=== PATIENT | female | born 1965 | race Caucasian/White ===

== ENCOUNTER → 2018-04-15 12:34 | Outpatient (REF) | payer BC, SELFPAY | LOC: LAB 12:34 | PROVIDERS: Visit Provider Obstetrics & Gynecology | DX: N90.89 Other specified noninflammatory disorders of vulva and perineum (principal) | CPT/HCPCS: 87070; 87077; 87186; 87205 ==

== ENCOUNTER 2018-07-12 10:46 | Inpatient (IN) ==
--- NOTE | 2018-07-12 12:26 | History & Physical Report ---
*Admission Date: 07/12/18 *Chief complaint: abd pain *History of present illness: this wf who has 3-4 days of proressive upper abd pain rad to back presented to ed this weekend and had abn ct and lft - she denied admit and has struggled as op with pain and dec po intake and was seen in office and admitted for treatment and eval - [facility] History I have reviewed the patient's past medical history: Yes Medical History: Reports:: Depression, Migraine Denies:: Anxiety, Hyperlipidemia, Hypertension, Seizures Laterality Cases: Left: Arthroscopy Shoulder, Right: Other Amputation: No Fractures: No - *Social History Educational Level: Attended High School Smoking Status: Current every day smoker Tobacco Type: cigarettes # Packs/Day (cigarettes): 1 Alcohol Intake: current Alcohol Intake Frequency:: 0-2 drinks per day Substance Use Type: marijuana Occupational Status: employed Housing: house Household Members: family, children - Psychiatric History Expresses thoughts of harming self/others: None Suicide Plan Description: No Plan Pschychiatric History:: Reports:: Depression Denies:: Anxiety *Family Hx:: Cancer, Heart Attack Review of Systems - Review of Systems Review of systems:: pertinent systems reviewed and negative unless documented below - Constitutional Reports fatigue, Reports malaise - Eyes Denies change in vision - ENT Denies sore throat - *Cardiovascular Denies chest pain - *Respiratory Denies cough - *Gastrointestinal Reports abdominal pain, Reports nausea, Denies black, tarry stools - *Genitourinary Denies blood in urine - *Musculoskeletal Denies joint pain, Denies joint swelling - Integumentary/Breasts Denies rash - *Neurologic Denies seizure-like activity - Psychiatric Denies anxiety Meds Home Medications Medication Instructions Recorded Confirmed Type Ibuprofen [Ibuprofen 800mg 800 mg PO NEEDED PRN 07/10/18 07/12/18 History Tablet] Allergies Allergy/AdvReac Type Severity Reaction Status Date / Time No Known Allergies Allergy Verified 07/12/18 09:07 Exam Vital signs and Labs for Last 24 Hours: Temp Pulse Resp BP Pulse Ox 98.7 F 83 18 107/55 L 90 L 07/12/18 11:22 07/12/18 12:02 07/12/18 12:02 07/12/18 11:22 07/12/18 12:02 I & O for Last 24 hours: Intake & Output 07/10/18 07/11/18 07/12/18 07/13/18 12:59 11:59 11:59 11:59 Weight 117 lb 8 oz - Constitutional no acute distress, thin, cooperative - *Routine HEENT Exam Head: Present: normocephalic Eye: Present: EOMI, PERRL, conjunctival icterus ENT: Present: mucous membranes dry - *Routine Neck Exam Present: supple - *Routine Respiratory Exam Present: CTA bilaterally - *Routine Cardiovascular Exam Present: RRR, murmur - *Routine Abdominal Exam Present: soft, tenderness - *Routine Extremities Exam Absent: calf tenderness - *Routine Skin Exam Present: intact, jaundice - *Routine Neurological Exam Present: alert, oriented X3, CN II-XII intact - Routine Psychiatric Exam Present: anxious Assessment and Plan (1) Hepatitis Current visit: Yes Status: Acute Category: Medical Code(s): K75.9 - Inflammatory liver disease, unspecified
[2018-07-12 14:24] LABS: Basophils % 0.6 % (0.1-2.0); Eosinophils % 0.4 % (0.1-12.0); Hematocrit 36.5 % (37.0-47.0); Hemoglobin 11.6 g/dL (12.2-16.2); Lymphocytes # 1.5 K/mm3 (0.7-4.5); Lymphocytes % 59.2 K/mm3 (10-50); Mean Corpuscular HGB Conc 31.8 g/dL (31.8-35.4); Mean Corpuscular Hemoglobin 30.5 pg (27.0-31.2); Mean Corpuscular Volume 95.7 fl (81-99); Mean Platelet Volume 8.6 fl (7.4-10.4); Monocytes # 0.1 K/mm3 (0.1-1.0); Monocytes % 4.7 % (1.7-9.3); Neutrophils # 0.9 K/mm3 (1.8-7.8); Platelet Count 129 K/mm3 (142-424); Red Blood Count 3.82 M/mm3 (4.20-5.40); Red Cell Distribution Width 14.4 % (11.5-17.5); White Blood Count 2.5 K/mm3 (4.8-10.8)
--- NOTE | 2018-07-12 14:27 | Consult Report ---
<Natali Benz - Last Filed: 07/12/18 14:23> *Admission Date: 07/12/18 *Chief complaint: Jaundice *History of present illness: This is a 52 year old female with what appears to be acute hepatitis of unknown origin. The pt presented to the ED on 07/10 with chest pain and was found to have elevated bilirubin 8.8 and AST/ALT over 1000. Alk phos 1156. The pt refused to be admitted and was d/c home. The pt was seen in Dr. Jane's office today and directly admitted to the hospital with no change in symptoms. She is mildly jaundice and has significant RUQ tenderness. The pt did have u/s imaging today that showed uniform gallbladder wall thickening measuring 5mm but no stones or obstruction or dilation of CBD. The pt denies any new medications, illegal drug use other than marijuana, new tattoos or piercings. She has had some loose stool but no severe n/v. [facility] History Medical History: Reports:: Depression, Migraine Denies:: Anxiety, Hyperlipidemia, Hypertension, Seizures Laterality Cases: Left: Arthroscopy Shoulder, Right: Other Amputation: No Fractures: No - *Social History Educational Level: Attended High School Smoking Status: Current every day smoker Tobacco Type: cigarettes # Packs/Day (cigarettes): 1 Alcohol Intake: current Alcohol Intake Frequency:: 0-2 drinks per day Substance Use Type: marijuana Occupational Status: employed Housing: house Household Members: family, children - Psychiatric History Expresses thoughts of harming self/others: None Suicide Plan Description: No Plan Pschychiatric History:: Reports:: Depression Denies:: Anxiety *Family Hx:: Cancer, Heart Attack Review of Systems - Constitutional Reports malaise - *Gastrointestinal Reports abdominal pain, Reports loose stools - *Musculoskeletal Reports back pain - Integumentary/Breasts Reports change in skin color, Reports yellowing of the skin Meds Home Medications Medication Instructions Recorded Confirmed Type Ibuprofen [Ibuprofen 800mg 800 mg PO NEEDED PRN 07/10/18 07/12/18 History Tablet] Allergies Allergy/AdvReac Type Severity Reaction Status Date / Time No Known Allergies Allergy Verified 07/12/18 09:07 Exam Vital signs and Labs for Last 24 Hours: Temp Pulse Resp BP Pulse Ox 98.7 F 83 18 107/55 L 90 L 07/12/18 11:22 07/12/18 12:02 07/12/18 12:02 07/12/18 11:22 07/12/18 12:02 I & O for Last 24 hours: Intake & Output 07/10/18 07/11/18 07/11/18 07/12/18 00:59 00:59 23:59 23:59 Weight 117 lb 8 oz - *Routine Abdominal Exam Present: tenderness (RUQ) - *Routine Skin Exam Present: jaundice Internal Medicine - CN: Reslt - Impressions 1.) Acute Hepatitis of unknown origin - Acute hepatitis panel ordered - supportive care for now - no intervention such as ERCP required at this time based on current diagnostics <Andrew Perez Jan - Last Filed: 07/12/18 14:50> *History of present illness: This patient does have acute hepatitis which can become fulminant hepatitis with liver failure. I would not allow discharge to home until bilirubin is clearly declining. We do need to determine etiology. Most often this represents acute viral hepatitis (most commonly hepatitis A and hepatitis B). I would check serologies. I would also obtain autoimmune serologies for subpulmonary autoimmune hepatitis. This can also occur with drug-induced hepatitis. This does not appear to be marked increases of transaminases/alkaline phosphatase from CBD stones. Most often choledocholithiasis does not result in perez saminases in the thousands or alkaline phosphatase in the thousands. The patient's ultrasound did not show any ductal dilation. If the serologies are negative, I would consider percutaneous liver biopsy and trial of corticosteroids. Exam Vital signs and Labs for Last 24 Hours: Temp Pulse Resp BP Pulse Ox 98.7 F 83 18 107/55 L 90 L 07/12/18 11:22 07/12/18 12:02 07/12/18 12:02 07/12/18 11:22 07/12/18 12:02 Laboratory Results - last 24 hr 07/12/18 14:15: WBC 2.5 L D, RBC 3.82 L, Hgb 11.6 L, Hct 36.5 L, MCV 95.7, MCH 30.5, MCHC 31.8, RDW 14.4, Plt Count 129 L, MPV 8.6, Neut % (Auto) 35.0 L, Lymph % (Auto) 59.2 H, [place] % (Auto) 4.7, Eos % (Auto) 0.4, Baso % (Auto) 0.6, Neut # (Auto) 0.9 L*, Lymph # (Auto) 1.5, [place] # (Auto) 0.1, Eos # (Auto) 0.0, Baso # (Auto) 0.0, Total Counted 100, Neutrophils % (Manual) 33 L, Lymphocytes % (Manual) 44, Atypical Lymphs % 21.0, Monocytes % (Manual) 2, Platelet Estimate Slight decrease, Stomatocytes 1+ I & O for Last 24 hours: Intake & Output 07/10/18 07/11/18 07/11/18 07/12/18 00:59 00:59 23:59 23:59 Weight 53.297 kg Internal Medicine - CN: Reslt - Labs CBC & Chem 7: 07/12/18 14:15 Labs: Short CBC 07/12/18 Range/Units 14:15 WBC 2.5 L D (4.8-10.8) K/mm3 Hgb 11.6 L (12.2-16.2) g/dL Hct 36.5 L (37.0-47.0) % Plt Count 129 L (142-424) K/mm3
[2018-07-12 14:46] LABS: Lymphocytes % 44 % (10-50); Monocytes % 2 % (2-9); Neutrophils % 33 % (42-76); Total Cells Counted 100
[2018-07-12 14:47] LABS: Albumin Level 2.1 gm/dL (3.4-5.0); Albumin/Globulin Ratio 0.6 (1.1-1.8); Anion Gap 9.5 mEq/L (5-15); Bilirubin,Total 9.3 mg/dL (0.2-1.0); Calcium 7.7 mg/dL (8.5-10.1); Globulin 3.7 gm/dl (1.3-3.2); Stomatocytes 1+; Total Protein,Serum 5.8 gm/dL (6.4-8.2)
[2018-07-12 15:11] LABS: Potassium 3.5 mmoL/L (3.5-5.1)
[2018-07-12 15:53] LABS: INR 1.04 (0.9-1.1); Prothrombin Time 10.7 seconds (9.4-11.8)
[2018-07-12 19:22] LABS: C-Reactive Protein 0.8 mg/L (0.0-0.9)
[2018-07-13 07:02] LABS: Basophils % 0.7 % (0.1-2.0); Eosinophils % 0.3 % (0.1-12.0); Hematocrit 35.2 % (37.0-47.0); Hemoglobin 11.4 g/dL (12.2-16.2); Lymphocytes # 1.9 K/mm3 (0.7-4.5); Lymphocytes % 59.5 K/mm3 (10-50); Mean Corpuscular HGB Conc 32.5 g/dL (31.8-35.4); Mean Corpuscular Hemoglobin 31.1 pg (27.0-31.2); Mean Corpuscular Volume 95.9 fl (81-99); Mean Platelet Volume 8.1 fl (7.4-10.4); Monocytes # 0.2 K/mm3 (0.1-1.0); Monocytes % 4.7 % (1.7-9.3); Neutrophils # 1.1 K/mm3 (1.8-7.8); Neutrophils % 34.8 % (37.0-80.0); Platelet Count 145 K/mm3 (142-424); Red Blood Count 3.67 M/mm3 (4.20-5.40); Red Cell Distribution Width 14.9 % (11.5-17.5); White Blood Count 3.1 K/mm3 (4.8-10.8)
[2018-07-13 07:31] LABS: Albumin Level 1.8 gm/dL (3.4-5.0); Albumin/Globulin Ratio 0.5 (1.1-1.8); Anion Gap 7.6 mEq/L (5-15); Bilirubin,Total 8.9 mg/dL (0.2-1.0); Calcium 7.6 mg/dL (8.5-10.1); Globulin 3.6 gm/dl (1.3-3.2); Potassium 3.6 mmoL/L (3.5-5.1); Total Protein,Serum 5.4 gm/dL (6.4-8.2)
--- NOTE | 2018-07-13 07:38 | Pharmacy Consult Notes ---
[facility] Pharm[facility] VTE Monitoring - Patient Demographics Admission date: 07/12/18 Report Date: 07/13/18 Time: 07:37 Allergies/Adverse Reactions: Patient Allergies No Known Allergies Allergy (Verified 07/12/18 09:07) Height: 1.68 m Weight: 53.297 kg Patient Problems: Current Active Problems Hepatitis (Acute) - VTE Risk Labs: VTE Related Lab Results Hgb 11.4 g/dL (12.2-16.2) L 07/13/18 06:15 Hct 35.2 % (37.0-47.0) L 07/13/18 06:15 Plt Count 145 K/mm3 (142-424) 07/13/18 06:15 PT 10.7 seconds (9.4-11.8) 07/12/18 15:25 INR 1.04 (0.9-1.1) 07/12/18 15:25 BUN 5 mg/dL (7-18) L 07/12/18 14:15 Creatinine 0.47 mg/dL (0.55-1.02) L D 07/12/18 14:15 Estimated Creat Clear 119 mL/min (0-300) 07/12/18 14:15 Was VTE Risk Assessment Performed: Yes VTE Score: 1 VTE Risk Level: Very Low Risk - Prophylaxis VTE Prophylaxis Ordered?: Yes Types of VTE Prophylaxis: TEDS Knee High Location of Applied Device: Bilateral Lower Extremeties - VTE Diagnosis Confirmed Treatment or plan recommended: Continue Current Treatment
--- NOTE | 2018-07-13 08:52 | Progress Note ---
Internal Medicine - PN: Subj *Date: 07/13/18 *Time: 08:49 Exam Vital signs and Labs for Last 24 Hours: Temp Pulse Resp BP Pulse Ox 99.0 F 89 18 105/58 L 94 L 07/13/18 04:00 07/13/18 04:00 07/13/18 04:00 07/13/18 04:00 07/13/18 08:00 Laboratory Results - last 24 hr 07/12/18 14:15: WBC 2.5 L D, RBC 3.82 L, Hgb 11.6 L, Hct 36.5 L, MCV 95.7, MCH 30.5, MCHC 31.8, RDW 14.4, Plt Count 129 L, MPV 8.6, Neut % (Auto) 35.0 L, Lymph % (Auto) 59.2 H, [place] % (Auto) 4.7, Eos % (Auto) 0.4, Baso % (Auto) 0.6, Neut # (Auto) 0.9 L*, Lymph # (Auto) 1.5, [place] # (Auto) 0.1, Eos # (Auto) 0.0, Baso # (Auto) 0.0, Total Counted 100, Neutrophils % (Manual) 33 L, Lymphocytes % (Manual) 44, Atypical Lymphs % 21.0, Monocytes % (Manual) 2, Platelet Estimate Slight decrease, Stomatocytes 1+ 07/12/18 14:15: Sodium 136, Potassium 3.5, Chloride 100, Carbon Dioxide 30, Anion Gap 9.5, BUN 5 L, Creatinine 0.47 L D, Estimated Creat Clear 119, Estimated GFR 140, Est GFR ( Amer) 169 D, Glucose 122 H, Calcium 7.7 L, Total Bilirubin 9.3 H, AST 970 H* D, ALT 961 H*, Alkaline Phosphatase 1170 H, Total Protein 5.8 L, Albumin 2.1 L, Globulin 3.7 H, Albumin/Globulin Ratio 0.6 L 07/12/18 15:25: PT 10.7, INR 1.04 07/12/18 15:25: Ferritin 2443 H, C-Reactive Protein 0.8 07/12/18 15:25: Ammonia 51 07/13/18 06:15: WBC 3.1 L, RBC 3.67 L, Hgb 11.4 L, Hct 35.2 L, MCV 95.9, MCH 31.1, MCHC 32.5, RDW 14.9, Plt Count 145, MPV 8.1, Neut % (Auto) 34.8 L, Lymph % (Auto) 59.5 H, [place] % (Auto) 4.7, Eos % (Auto) 0.3, Baso % (Auto) 0.7, Neut # (Auto) 1.1 L, Lymph # (Auto) 1.9, [place] # (Auto) 0.2, Eos # (Auto) 0.0, Baso # (Auto) 0.0 07/13/18 06:15: Sodium 133 L, Potassium 3.6, Chloride 102, Carbon Dioxide 27, Anion Gap 7.6, BUN 4 L, Creatinine 0.51 L, Estimated Creat Clear 110, Estimated GFR 127, Est GFR ( Amer) 154, Glucose 90 D, Calcium 7.6 L, Total Bilirubin 8.9 H, AST 747 H*, ALT 779 H*, Alkaline Phosphatase 1182 H, Total Protein 5.4 L, Albumin 1.8 L D, Globulin 3.6 H, Albumin/Globulin Ratio 0.5 L I & O for Last 24 hours: Intake & Output 07/10/18 07/11/18 07/12/18 07/13/18 12:59 11:59 11:59 11:59 Intake Total 2417 / 2417 Balance 2417 / 2417 Weight 117 lb 8 oz 117 lb 8 oz - *Routine HEENT Exam Head: Present: normocephalic Eye: Present: PERRL ENT: Present: mucous membranes moist Comments: jaundice - *Routine Neck Exam Present: supple. Absent: lymphadenopathy - *Routine Respiratory Exam Present: CTA bilaterally - *Routine Cardiovascular Exam Present: RRR - *Routine Abdominal Exam Present: soft, normoactive bowel sounds, tenderness - *Routine Extremities Exam Present: full ROM. Absent: cyanosis, clubbing, edema - *Routine Skin Exam Present: jaundice - *Routine Neurological Exam Present: alert, oriented X3 Assessment and Plan (1) Hepatitis Current visit: Yes Status: Acute Category: Medical Code(s): K75.9 - Inflammatory liver disease, unspecified - Assessment and plan all Dx Assessment and Plan for all problems:: Rounded with Dr. Jane all orders per Lucinda positive for hep A monitor labs
[2018-07-13 14:51] LABS: Lymphocytes % 52 % (10-50); Monocytes % 3 % (2-9); Neutrophils % 36 % (42-76); Total Cells Counted 100
[2018-07-14 06:43] LABS: Albumin Level 1.7 gm/dL (3.4-5.0); Albumin/Globulin Ratio 0.5 (1.1-1.8); Anion Gap 10.6 mEq/L (5-15); Bilirubin,Total 8.1 mg/dL (0.2-1.0); Calcium 7.6 mg/dL (8.5-10.1); Globulin 3.6 gm/dl (1.3-3.2); Potassium 3.6 mmoL/L (3.5-5.1); Total Protein,Serum 5.3 gm/dL (6.4-8.2)
--- NOTE | 2018-07-14 10:24 | Progress Note ---
Internal Medicine - PN: Subj *Date: 07/14/18 *Time: 10:21 Interval history: pt doing better and lft dec Exam Vital signs and Labs for Last 24 Hours: Temp Pulse Resp BP Pulse Ox 98.0 F 70 18 101/64 L 93 L 07/14/18 08:00 07/14/18 08:00 07/14/18 08:00 07/14/18 08:00 07/14/18 08:00 Laboratory Results - last 24 hr 07/13/18 06:15: Total Counted 100, Neutrophils % (Manual) 36 L, Lymphocytes % (Manual) 52 H, Atypical Lymphs % 8.0, Monocytes % (Manual) 3, Metamyelocytes % 1.0, Platelet Estimate Normal 07/14/18 06:02: Sodium 137, Potassium 3.6, Chloride 103, Carbon Dioxide 27, Anion Gap 10.6, BUN 3 L, Creatinine 0.51 L, Estimated Creat Clear 110, Estimated GFR 127, Est GFR ( Amer) 154, Glucose 95, Calcium 7.6 L, Total Bilirubin 8.1 H, AST 439 H* D, ALT 550 H*, Alkaline Phosphatase 1130 H, Total Protein 5.3 L, Albumin 1.7 L, Globulin 3.6 H, Albumin/Globulin Ratio 0.5 L I & O for Last 24 hours: Intake & Output 07/11/18 07/12/18 07/13/18 07/14/18 11:59 11:59 11:59 11:59 Intake Total 2897 / 2897 3578 / 3578 Balance 2897 / 2897 3578 / 3578 Weight 117 lb 8 oz 117 lb 8 oz - Constitutional no acute distress, thin - *Routine HEENT Exam Head: Present: normocephalic Eye: Present: EOMI, PERRL, conjunctival icterus ENT: Present: mucous membranes dry - *Routine Neck Exam Present: supple - *Routine Respiratory Exam Present: CTA bilaterally - *Routine Cardiovascular Exam Present: RRR - *Routine Abdominal Exam Present: soft - *Routine Extremities Exam Absent: calf tenderness - *Routine Skin Exam Present: intact - *Routine Neurological Exam Present: alert, CN II-XII intact - Routine Psychiatric Exam Present: normal affect Assessment and Plan (1) Hepatitis Current visit: Yes Status: Acute Category: Medical Code(s): K75.9 - Inflammatory liver disease, unspecified
[2018-07-14 11:26] LABS: Hepatitis B Core Antibody IgM Negative (Negative); Hepatitis B Surface Antigen Negative (Negative)
[2018-07-14 12:40] LABS: Hepatitis C Antibody <0.1 s/co ratio (0.0-0.9)
[2018-07-14 15:31] LABS: Anti-Smith Antibody <0.2 AI (0.0-0.9)
[2018-07-15 09:01] LABS: Albumin Level 1.6 gm/dL (3.4-5.0); Albumin/Globulin Ratio 0.4 (1.1-1.8); Anion Gap 9.5 mEq/L (5-15); Bilirubin,Total 6.9 mg/dL (0.2-1.0); Calcium 7.6 mg/dL (8.5-10.1); Globulin 3.9 gm/dl (1.3-3.2); Potassium 3.5 mmoL/L (3.5-5.1); Total Protein,Serum 5.5 gm/dL (6.4-8.2)
--- NOTE | 2018-07-15 12:33 | Discharge Summary ---
General - General Admission date:: 07/12/18 Discharge date: 07/15/18 HPI HPI: this wf who has 3-4 days of proressive upper abd pain rad to back presented to ed this weekend and had abn ct and lft - she denied admit and has struggled as op with pain and dec po intake and was seen in office and admitted for treatment and eval - Hospital Course Hospital Course: GI, consult see note hepatitis panel positive for hepatitis A AST-274 down from 439 ALT-550 down from 409 Patient states today she is feeling better abdomen is less tender, labs continue to trend down. We will discharge home follow-up with Dr. Perez next. No work until follow-up. Follow-up in office on Thursday. Patient was informed with contact precautions. no tylenol or drinking etol Objective Vital signs: Temp Pulse Resp BP Pulse Ox 98.3 F 77 18 116/71 95 07/15/18 08:00 07/15/18 08:00 07/15/18 08:00 07/15/18 08:00 07/15/18 08:00 no acute distress - *Routine HEENT Exam Head: Present: normocephalic Eye: Present: PERRL ENT: Present: mucous membranes moist - *Routine Neck Exam Present: full ROM - *Routine Respiratory Exam Present: CTA bilaterally - *Routine Cardiovascular Exam Present: RRR - *Routine Abdominal Exam Present: soft, normoactive bowel sounds, tenderness - *Routine Extremities Exam Present: full ROM - *Routine Skin Exam Present: intact, jaundice - *Routine Neurological Exam Present: alert, oriented X3 - Routine Psychiatric Exam Present: normal affect Results Labs on day of discharge: Labs from last 24 hours 07/15/18 07/12/18 07/12/18 08:32 15:25 14:15 Sodium 133 L Potassium 3.5 Chloride 100 Carbon Dioxide 27 Anion Gap 9.5 BUN 2 L D Creatinine 0.62 D Estimated Creat Clear 90 Estimated GFR 101 Est GFR ( Amer) 123 D Glucose 157 H Calcium 7.6 L Total Bilirubin 6.9 H AST 274 H D ALT 409 H* Alkaline Phosphatase 1094 H Total Protein 5.5 L Albumin 1.6 L Globulin 3.9 H Albumin/Globulin Ratio 0.4 L IgG 1240 IgA 260 IgM 515 H Hepatitis A IgM Ab Positive A Hep Bs Antigen Negative Hep B Core IgM Ab Negative Hepatitis C Antibody <0.1 - Additional Comments Rounded with Dr. Jane all orders per Lucinda DS: Diagnosis - Discharge Diagnosis (1) Hepatitis Status: Acute Discharge Plan - Patient Discharge Instructions ACTIVITY: Continue current activity DIET: continue same diet Patient Instructions: Hepatitis A Virus, Hepatitis B Virus, Hepatitis C Virus - Follow up Plan Follow up with: Anderw Perez MD [Staff Physician] - 2 weeks Silvestre Jane MD [Primary Care Provider] - 1 week Home Medications: Home Medications Medication Instructions Recorded Confirmed Type Ibuprofen [Ibuprofen 800mg 800 mg PO Q8HP PRN 07/10/18 07/13/18 History Tablet] Prescriptions/Medication Reconciliation: Continue Ibuprofen [Ibuprofen 800mg Tablet] 800 mg PO Q8HP PRN PRN Reason: Moderate Pain
[2018-07-16 09:24] LABS: Angiotensin Converting Enzyme 234 U/L (14-82)
== END 2018-07-15 13:31 | disposition home or self-care (01) ==
LOC: OBSVTOIN 10:47
PROVIDERS: ADMIT Emergency Medicine; ATTEND Emergency Medicine

== ENCOUNTER → 2018-07-20 17:41 | Outpatient (CLI) | payer BC, SELFPAY ==
[2018-07-20 18:01] LABS: Basophils % 1.1 % (0.1-2.0); Eosinophils % 0.9 % (0.1-12.0); Hematocrit 37.4 % (37.0-47.0); Hemoglobin 11.5 g/dL (12.2-16.2); Lymphocytes # 1.1 K/mm3 (0.7-4.5); Lymphocytes % 37.4 % (10-50); Mean Corpuscular HGB Conc 30.7 g/dL (31.8-35.4); Mean Corpuscular Hemoglobin 30.4 pg (27.0-31.2); Mean Corpuscular Volume 98.9 fl (81-99); Mean Platelet Volume 9.9 fl (7.4-10.4); Monocytes # 0.4 K/mm3 (0.1-1.0); Monocytes % 12.2 % (1.7-9.3); Neutrophils # 1.5 K/mm3 (1.8-7.8); Neutrophils % 48.4 % (37.0-80.0); Platelet Count 258 K/mm3 (142-424); Red Blood Count 3.79 M/mm3 (4.20-5.40); Red Cell Distribution Width 15.7 % (11.5-17.5)
[2018-07-20 18:20] LABS: Albumin Level 2.2 gm/dL (3.4-5.0); Albumin/Globulin Ratio 0.5 (1.1-1.8); Anion Gap 11.2 mEq/L (5-15); Aspartate Amino Transferase 225 U/L (15-37); Blood Urea Nitrogen 7 mg/dL (7-18); Carbon Dioxide 28 mmol/L (21.0-32.0); Chloride 99 mmol/L (98-107); Creatinine,Serum 0.55 mg/dL (0.55-1.02); Estimated Glomerular Filt Rate 117 ml/min (>60); GFR (African American) 141 ML/MIN (>60); Globulin 4.5 gm/dl (1.3-3.2); Potassium 4.2 mmoL/L (3.5-5.1); Sodium 134 mmol/L (136-145); Total Protein,Serum 6.7 gm/dL (6.4-8.2)
[2018-07-20 18:28] LABS: Amylase 24 U/L (25-115); Lipase 156 u/L (73-393)
[2018-07-20 19:51] LABS: Alkaline Phosphatase 1157 U/L (46-116)
[2018-07-20 19:52] LABS: Alanine Aminotransferase 222 U/L (12-78)
[2018-07-20 19:53] LABS: Bilirubin,Total 3.9 mg/dL (0.2-1.0); Calcium 8.8 mg/dL (8.5-10.1)
[2018-07-20 19:54] LABS: Glucose 87 mg/dL (74-106)
== END ==
PROVIDERS: Visit Provider Emergency Medicine
DX: K81.9 Cholecystitis, unspecified (principal); R74.8 Abnormal levels of other serum enzymes
CPT/HCPCS: 80053; 82150; 83690; 85025

== ENCOUNTER → 2018-07-26 14:23 | Outpatient (CLI) | payer BC, SELFPAY ==
[2018-07-26 15:02] LABS: Eosinophils # 0.1 K/mm3 (0.0-0.4); Eosinophils % 1.4 % (0.1-12.0); Hematocrit 36.7 % (37.0-47.0); Hemoglobin 11.5 g/dL (12.2-16.2); Lymphocytes # 1.4 K/mm3 (0.7-4.5); Lymphocytes % 41.8 % (10-50); Mean Corpuscular HGB Conc 31.3 g/dL (31.8-35.4); Mean Corpuscular Hemoglobin 30.1 pg (27.0-31.2); Mean Corpuscular Volume 95.9 fl (81-99); Mean Platelet Volume 7.5 fl (7.4-10.4); Monocytes # 0.2 K/mm3 (0.1-1.0); Monocytes % 6.6 % (1.7-9.3); Neutrophils # 1.7 K/mm3 (1.8-7.8); Neutrophils % 49.2 % (37.0-80.0); Platelet Count 266 K/mm3 (142-424); Red Blood Count 3.83 M/mm3 (4.20-5.40); Red Cell Distribution Width 15.6 % (11.5-17.5); White Blood Count 3.4 K/mm3 (4.8-10.8)
[2018-07-26 15:44] LABS: Albumin Level 2.5 gm/dL (3.4-5.0); Albumin/Globulin Ratio 0.6 (1.1-1.8); Alkaline Phosphatase 763 U/L (46-116); Anion Gap 9.9 mEq/L (5-15); Blood Urea Nitrogen 10 mg/dL (7-18); Carbon Dioxide 29 mmol/L (21.0-32.0); Chloride 103 mmol/L (98-107); Creatinine,Serum 0.61 mg/dL (0.55-1.02); Estimated Glomerular Filt Rate 103 ml/min (>60); GFR (African American) 125 ML/MIN (>60); Globulin 4.5 gm/dl (1.3-3.2); Potassium 3.9 mmoL/L (3.5-5.1); Sodium 138 mmol/L (136-145)
[2018-07-26 16:55] LABS: Alanine Aminotransferase 159 U/L (12-78); Aspartate Amino Transferase 215 U/L (15-37)
[2018-07-26 16:57] LABS: Bilirubin,Total 2.6 mg/dL (0.2-1.0); Calcium 9.3 mg/dL (8.5-10.1); Glucose 105 mg/dL (74-106)
== END ==
PROVIDERS: Visit Provider Nurse Practitioner Acute Care
DX: B15.9 Hepatitis A without hepatic coma (principal)
CPT/HCPCS: 36415; 80053; 85025

== ENCOUNTER 2019-01-06 13:41 | Emergency (ER) | payer BC, SELFPAY ==
[2019-01-06] VITALS (7 sets, daily range): BP systolic 129–140; BP diastolic 62–85; PULSE 68–84; RESP 16–18; TEMP 36.6–36.8; O2SAT 96–99; BMI 20.9
--- NOTE | 2019-01-06 14:41 | [facility].EDGENADL ---
ED Disposition Clinical Impression: Neuropathic pain Disposition: Home, Self-Care Condition on Discharge: Good Referrals: Silvestre Jane MD [Primary Care Provider] - Time of Disposition: 17:18 - Critical Care Critical Care Time: No Attestation: On 01/06/19, the high probability of a clinically significant, sudden or life threatening deterioration of the following system(s) required my full and direct attention, intervention and personal management. The time I documented below is in addition to time spent performing reported procedures but includes the following listed in this critical care notation. Medical Decision Making - Medical Records Medical records reviewed: Yes: I reviewed the patient's medical records. - Greg Inquiry Pt receiving controlled substance: No Greg was queried for this patient: No Vital Signs: 01/06/19 14:42 Temperature 98.3 F Temperature Source Oral Pulse Rate [Left Radial] 72 Respiratory Rate 16 Blood Pressure [Right Arm] 137/72 Blood Pressure Mean [Right Arm] 93 Blood Pressure Source [Right Arm] Automatic Cuff Blood Pressure Position [Right Arm] Sitting 02 Sat by Pulse Oximetry 98 Oxygen Delivery Method Room Air - Lab Data Lab results reviewed: Yes: I reviewed the patient's lab results. Orders (Tests/Meds): ED MEDICATIONS Discontinued Medications Generic Name Dose Route Start Last Admin Trade Name Freq PRN Reason Stop Dose Admin Ketorolac Tromethamine 60 mg 01/06/19 14:54 01/06/19 15:01 Toradol 60mg/2ml Vial IM 01/06/19 14:55 60 mg ONCE ONE Administration Prednisone 60 mg 01/06/19 14:55 01/06/19 15:02 Deltasone 20mg Tablet PO 01/06/19 14:56 60 mg ONCE ONE Administration General Adult HPI - General Stated complaint: left ear pain Time Seen by Provider: 01/06/19 14:41 Mode of Arrival: Ambulatory Source of Information: Patient Limitations: No Limitations - Related Data Home Medications Medication Instructions Recorded Confirmed No Known Home Medications 01/06/19 01/06/19 Allergies Allergy/AdvReac Type Severity Reaction Status Date / Time No Known Allergies Allergy Verified 12/03/18 04:28 [facility] History - Hepatitis A Screen Attestation statement:: This patient has been screened for Hepatitis A risk factors. I have reviewed the patient's past medical history: Yes Medical History: Reports:: Depression, Hepatitis, Migraine Denies:: Anxiety, Hyperlipidemia, Hypertension, Seizures Laterality Cases: Left: Arthroscopy Shoulder, Right: Other Amputation: No Fractures: No Comment: right thumb, left shoulder - Social History Smoking Status: Current every day smoker Tobacco Type: cigarettes # Packs/Day (cigarettes): 2 Alcohol Intake: never Alcohol Intake Frequency:: 0-2 drinks per day Substance Use Type: marijuana Occupational Status: employed Housing: house Household Members: significant other, family, children - Psychiatric History Pschychiatric History:: Reports:: Depression Denies:: Anxiety Family Hx:: Cancer, Heart Attack ROS Obtained: Yes All systems reviewed & no additional complaints - Constitutional Constitutional: Denies chills, Denies fatigue, Denies fever(s) - Eyes Eyes: Denies change in vision - ENT Ears, Nose, Mouth, and Throat: Denies sinus pain, Denies sinus pressure, Denies ringing in the ears - Cardiovascular Cardiovascular: Denies chest pain, Denies chest pain at rest, Denies dyspnea - Respiratory Respiratory: No chest congestion, No cough, No dyspnea on exertion - Musculoskeletal Musculoskeletal: Denies back pain, Denies joint stiffness, Denies joint swelling, Reports neck pain - Integumentary/Breasts Skin/Breast: Denies rash, Denies skin pain - Neurologic Neurologic: Reports headache(s), Reports other (burning sensation post to mastoid process... no overlying skin changes) Physical Exam - General General appearance: alert, in distress - Head Head exam: atr
--- NOTE | 2019-01-06 17:15 | PC.NURSE ---
pt states improvement in pain
== END 2019-01-06 17:46 | disposition home or self-care (01) ==
PROVIDERS: Emergency Provider Emergency Medicine; PCP Emergency Medicine
DX: M79.2 Neuralgia and neuritis, unspecified (principal); F33.1 Major depressive disorder, recurrent, moderate; F17.210 Nicotine dependence, cigarettes, uncomplicated
CPT/HCPCS: 96372; 99283

== ENCOUNTER → 2019-10-20 09:33 | Outpatient (CLI) | payer BC, SELFPAY ==
--- NOTE | 2019-10-20 09:33 | MM_ITS ---
PROCEDURE: MM DIG SCREENING MAMM BI W/CAD CLINICAL INDICATION: screening There is no personal or family history of breast cancer COMPARISON: DMDXUR DIG MAMM-DX UNILATERAL-RT from 11/17/2012 SBWCR STEROTATIC BX W/CLIP-RT from 11/17/2012 DMSB DIG MAMM-SCREEN LILA from 12/20/2014 TECHNIQUE: Standard CC and MLO images and 3D Tomosynthesis was obtained. R2 CAD reviewed. FINDINGS: There is a markedly and diffusely dense parenchymal pattern definitely lessening the sensitivity of mammography. Treasure images are most helpful in this type of breast parenchyma. There are scattered areas of somewhat amorphous appearing microcalcifications in the outer quadrants of each breast best appreciated on the CC projections and treasure images. The somewhat diffuse nature of these microcalcifications are more in favor of sclerosing adenosis. There were not definitely seen on the previous study in 2014. Though they most likely represent sclerosing adenosis which he just patient return with for better evaluation especially since there has not been more recent mammograms for comparison. There is minimal arterial calcification in each breast. IMPRESSION: Markedly dense and heterogenic parenchymal pattern with scattered areas of microcalcifications likely secondary to sclerosing adenosis however see discussion above. BI-RAD Category: 3 Probably Benign Finding Short Term Follow-up FOLLOW-UP: 6M 6Month Follow-up (A letter has been sent to the patient regarding results of the study.) Dictated by: Dr. Narinder Grimes MD 10/22/2019 10:[address] Narinder Grimes MD in [place] 10/22/2019 10:10
== END ==
PROVIDERS: PCP Emergency Medicine; Visit Provider Nurse Practitioner Family
DX: Z12.31 Encounter for screening mammogram for malignant neoplasm of breast (principal)
CPT/HCPCS: 77063; 77067

== ENCOUNTER 2020-04-11 19:17 | Emergency (ER) | payer BC, SELFPAY ==
[2020-04-11 19:24] VITALS: BP 108/70; PULSE 70; RESP 19; TEMP 36.6; O2SAT 98; BMI 22.6
--- NOTE | 2020-04-11 19:56 | HMH.EDUTC ---
[facility] [place] Clinical Impression: Sinusitis Qualifiers: Sinusitis location: unspecified location Chronicity: acute Recurrence: non-recurrent Qualified Code(s): J01.90 - Acute sinusitis, unspecified Acute bronchitis Qualifiers: Bronchitis organism: unspecified organism Qualified Code(s): J20.9 - Acute bronchitis, unspecified Disposition: Home, Self-Care Condition on Discharge: Good Instructions: Sinusitis, DI for Sinusitis, DI for Acute Bronchitis Additional Instructions: Drink plenty of fluids. Take tylenol or ibuprofen for pain or fever. Take the medications as directed. Follow up with your regular doctor. GO TO THE ER FOR ANY WORSENING SYMPTOMS Prescriptions: Benzonatate [Tessalon Perle 100mg Cap] 100 mg PO TIDP PRN #30 cap PRN Reason: Cough Transmission Status: Received by [facility] Azithromycin [Z-Amol 250mg Tab*] 250 mg PO UD DOSE PK #6 tab Transmission Status: Received by [facility] Referrals: Silvestre Jane MD [Primary Care Provider] - Forms: Work/School Release Time of Disposition: 19:58 Medical Decision Making - Medical Records Medical records reviewed: No: I reviewed the patient's medical records. - Greg Inquiry Pt receiving controlled substance: No Vital Signs: 04/11/20 19:24 04/11/20 20:12 Temperature 97.8 F 97.8 F Temperature Source Oral Oral Pulse Rate 70 Pulse Rate [Radial] 70 Respiratory Rate 19 19 Blood Pressure 108/70 L Blood Pressure [Right Arm] 108/70 L Blood Pressure Mean [Right Arm] 82 Blood Pressure Source Automatic Cuff Blood Pressure Source [Right Arm] Automatic Cuff Blood Pressure Position Sitting Blood Pressure Position [Right Arm] Sitting 02 Sat by Pulse Oximetry 98 Oxygen Delivery Method Room Air Room Air [facility] [place] - General Stated complaint: Needs release for work Time Seen by Provider: 04/11/20 19:30 Mode of Arrival: Ambulatory Source of Information: Patient Limitations: No Limitations Description of Symptoms (Recalled from Triage Doc. by RN): Reports that she needs a release in order to go back to work. HEENT Symptoms (Recalled from RN notes): No Resp Symptoms (Recalled from RN notes): No Skin Symptoms (Recalled from RN notes): No MS Symptoms (Recalled from RN notes): No Functional Status (Recalled from RN notes): wnl - History of Present Illness Provider Complaint: She states that she has had chest congesion and sinus congestion for the past 3 days. She was tested at her work for COVID-19. She states that it was negative, but she was told to get treated for her symptoms before she comes back to work. - Related Data Previous Rx's Medication Instructions Recorded amoxicillin 500 mg tablet 500 mg PO BID 10 Days #20 tab 10/04/19 fluticasone propionate 50 1 spray INTRANASAL DAILY #9.9 ml 11/02/19 mcg/actuation nasal spray,suspension Azithromycin [Z-Amol 250mg Tab*] 250 mg PO UD DOSE PK #6 tab 04/11/20 Benzonatate [Tessalon Perle 100mg 100 mg PO TIDP PRN #30 cap 04/11/20 Cap] Allergies Allergy/AdvReac Type Severity Reaction Status Date / Time No Known Allergies Allergy Verified 11/02/19 10:55 - Worker's Comp Is this a Worker's Comp case?: No [facility] History - Hepatitis A Screen Drug use history?: No High risk sexual behaviors?: No History of sexually transmitted infection?: No Currently employed?: No Childcare worker?: No Do you have indoor plumbing?: Yes Do you have electricity?: Yes Attestation statement:: This patient has been screened for Hepatitis A risk factors. I have reviewed the patient's past medical history: Yes Medical History: Reports:: Depression, Hepatitis, Migraine Denies:: Anxiety, Hyperlipidemia, Hypertension, Seizures Other Medical History: Reports: Sinus Problems Laterality Cases: Left: Arthroscopy Shoulder, Right: Other Amputation: No Fractures: No Comment: right thumb, left shoulder - Social History Smoking Status: Current every day smoker Tobacco Ty
[2020-04-11 20:12] VITALS: BP 108/70; PULSE 70; RESP 19; TEMP 36.6; O2SAT 98
== END 2020-04-11 20:13 | disposition home or self-care (01) ==
PROVIDERS: Emergency Provider Nurse Practitioner Family; PCP Emergency Medicine
DX: J01.90 Acute sinusitis, unspecified (principal); J20.9 Acute bronchitis, unspecified; G43.709 Chronic migraine without aura, not intractable, without status migrainosus; F33.1 Major depressive disorder, recurrent, moderate; F17.210 Nicotine dependence, cigarettes, uncomplicated
CPT/HCPCS: 99201; U0003

== ENCOUNTER 2021-04-20 16:42 | Emergency (ER) | payer BC, SELFPAY ==
[2021-04-20 16:43] VITALS: BP 126/77; PULSE 72; RESP 22; TEMP 36.9; O2SAT 99; BMI 24.2
--- NOTE | 2021-04-20 17:18 | XR_ITS ---
PROCEDURE INFORMATION: Exam: XR Right Knee Exam date and time: 04/20/2021 5:18 PM Age: 55 years old Clinical indication: Pain; Knee; Right TECHNIQUE: Imaging protocol: XR Right knee. Views: 3 views. COMPARISON: CR Knee R 03/08/2019 4:49 PM FINDINGS: Bones/joints: Moderate tricompartmental degenerative changes are seen in the knee. Calcium projects over the lateral and medial compartments compatible with chondrocalcinosis. No fracture. No malalignment. Soft tissues: Soft tissues notable for a moderate suprapatellar effusion. IMPRESSION: Moderate degenerative arthritis
--- NOTE | 2021-04-20 17:18 | ECG_ITS ---
APPROVED REPORT Exam: Resting ECG HR:82 bpm ECG Measurements Heart Rate 82 AXES CA 120 P 69 QRSd 82 QRS 86 QT 376 T 61 QTc 439 Conclusion Sinus rhythm with premature atrial complexes Biatrial abnormality Late r wave progression Abnormal ECG Electronically signed by : Jaime Ernst MD 04/21/2021 08:59:47
[2021-04-20 17:22] VITALS: BP 143/88; PULSE 89; RESP 12; O2SAT 96
[2021-04-20 17:27] LABS: Basophils # 0.1 K/mm3 (0-0.2); Basophils % 0.5 % (0.1-2.0); Eosinophils # 0.1 K/mm3 (0.0-0.4); Eosinophils % 1.2 % (0.1-12.0); Hematocrit 39.6 % (37.0-47.0); Hemoglobin 13.7 g/dL (12.2-16.2); Lymphocytes # 2.2 K/mm3 (0.7-4.5); Lymphocytes % 19.1 % (10-50); Mean Corpuscular HGB Conc 34.6 g/dL (31.8-35.4); Mean Corpuscular Hemoglobin 30.1 pg (27.0-31.2); Mean Corpuscular Volume 87.1 fl (81-99); Mean Platelet Volume 8.3 fl (7.4-10.4); Monocytes # 0.6 K/mm3 (0.1-1.0); Monocytes % 5.5 % (1.7-9.3); Neutrophils # 8.5 K/mm3 (1.8-7.8); Neutrophils % 73.8 % (37.0-80.0); Platelet Count 166 K/mm3 (142-424); Red Blood Count 4.55 M/mm3 (4.20-5.40); Red Cell Distribution Width 13.3 % (11.5-17.5); White Blood Count 11.6 K/mm3 (4.8-10.8)
[2021-04-20 17:30] LABS: Chloride 101 mmol/L (98-107); Potassium 3.7 mmoL/L (3.5-5.1); Sodium 137 mmol/L (136-145)
[2021-04-20 17:33] LABS: Alanine Aminotransferase 15 U/L (12-78); Albumin Level 4.2 g/dl (3.5-5.0); Albumin/Globulin Ratio 1.3 (1.1-1.8); Alkaline Phosphatase 101 U/L (38-126); Anion Gap 11.7 mEq/L (5-15); Aspartate Amino Transferase 23 U/L (14-36); Bilirubin,Total 0.4 mg/dl (0.2-1.3); Blood Urea Nitrogen 10 mg/dl (7-17); Calcium 9.2 mg/dl (8.4-10.2); Carbon Dioxide 28 mmol/L (22.0-30.0); Creatinine Clearance Estimated 138 mL/min (50-200); Estimated Glomerular Filt Rate 129 ml/min (>60); GFR (African American) 156 ML/MIN (>60); Globulin 3.3 g/dL (1.3-3.2); Glucose 118 mg/dl (74-100); Total Protein,Serum 7.5 g/dl (6.3-8.2)
[2021-04-20 17:38] VITALS: BP 130/76; PULSE 86; RESP 12; O2SAT 100
[2021-04-20 17:38] LABS: HCG Qualitative, Serum Negative (Negative)
--- NOTE | 2021-04-20 18:18 | HMH.EDGENADL ---
ED Disposition Clinical Impression: Effusion, right knee, Left lower quadrant pain, Syncope and collapse Osteoarthritis of right knee Qualifiers: Osteoarthritis type: unspecified Qualified Code(s): M17.11 - Unilateral primary osteoarthritis, right knee UTI (urinary tract infection) Qualifiers: Urinary tract infection type: site unspecified Hematuria presence: without hematuria Qualified Code(s): N39.0 - Urinary tract infection, site not specified Sinusitis Qualifiers: Sinusitis location: unspecified location Chronicity: unspecified Qualified Code(s): J32.9 - Chronic sinusitis, unspecified Disposition: Home Health Service Condition on Discharge: Good Instructions: DI for Syncope in Adults (Fainting), DI for Sinusitis, DI for Urinary Tract Infection (UTI), DI for Abdominal Pain-Adult, DI for Knee Effusion Additional Instructions: Take antibiotic as prescribed. Knee immobilizer and crutches until seen by orthopedics. Ice and elevate your knee to reduce pain and swelling. Tylenol 3 as needed for pain. Follow-up with Dr. Boyd, call for appointment. Additional instructions for URINARY TRACT INFECTION: Take antibiotic as prescribed. See your physician in 2-3 days for follow up and culture results. Return immediately if you have an uncontrollable fever greater than 102 degrees, severe back or abdominal pain, inability to urinate, or repetitive vomiting. Additional instructions for CONTROLLED SUBSTANCES: You have been prescribed a medication that is a controlled substance. Controlled substances include pain medications known as opiates and sedative nerve medications known as benzodiazepines. Tramadol, fioricet, and gabapentin are also controlled substances. Some common opiates include: Codeine (such as Tylenol #3) Hydrocodone (Vicodin, Lortab, Lorcet, Troy) Oxycodone (Percocet, Percodan, Oxycodone, Oxy IR) Some common benzodiazepines include: Diazepam (Valium) Lorazepam (Ativan) Alprazolam (Xanax) Clonazepam (Klonopin) Oxazepam (Serax) All of these controlled substances are highly addictive and frequently abused. Misuse can and frequently does lead to addiction as well as overdose and . Medication should be stored in a locked cabinet or other secure storage unit. Do not store the medication in a motor vehicle. Short term supplies, 3 days or less, are prescribed because of the highly addictive nature of the medication. Any of the controlled substance medication NOT taken should be disposed of properly and NOT SAVED. The recommended method of disposing of unused medications is: Place the medicines in a sealable plastic bag. If the medicine is a solid, crush it or add water to dissolve it. Add something undesirable (cat litter, coffee grounds, etc.) Dispose of sealed bag in household trash Do not flush or pour unused medicines down a sink or drain. Controlled substances should not be shared, given away or sold. Because of the addictive nature and frequent abuse, these medications are sometimes stolen. These medications should be kept in a safe place where they cannot be stolen. Do not keep them in your car or purse. Lost or stolen prescriptions for controlled substances WILL NOT BE REFILLED in this emergency department, regardless of whether a police report was filed. Prescriptions: Cefdinir [Omnicef 300mg Capsule] 300 mg PO BID #20 cap Transmission Status: Received by [facility] Referrals: Silvestre Jane MD [Primary Care Provider] - - Critical Care Critical Care Time: No Attestation: On 04/20/21, the high probability of a clinically significant, sudden or life threatening deterioration of the following system(s) required my full and direct attention, intervention and personal management. The time I documented below is in addition to time spent performing reported procedures but includes the following listed in this critical care notation. Medical Decision Making - Greg
--- NOTE | 2021-04-20 18:34 | CT_ITS ---
PROCEDURE INFORMATION: Exam: CT Abdomen And Pelvis With Contrast Exam date and time: 04/20/2021 6:34 PM Age: 55 years old Clinical indication: Abdominal pain; Additional info: Llq abdo pain TECHNIQUE: Imaging protocol: Computed tomography of the abdomen and pelvis with contrast. Radiation optimization: All CT scans at this facility use at least one of these dose optimization techniques: automated exposure control; mA and/or kV adjustment per patient size (includes targeted exams where dose is matched to clinical indication); or iterative reconstruction. Contrast material: ISOVUE; Contrast volume: 75 ml; Contrast route: IV; COMPARISON: ABDPELWO CT abdomen pelvis wo con 07/10/2018 9:31 PM FINDINGS: Liver: Normal. No mass. Gallbladder and bile ducts: Normal. No calcified stones. No ductal dilation. Pancreas: Normal. No ductal dilation. Spleen: Splenic granulomata seen. Adrenal glands: Normal. No mass. Kidneys and ureters: Normal. No hydronephrosis. Stomach and bowel: Unremarkable. No obstruction. No mucosal thickening. Appendix: No evidence of appendicitis. Intraperitoneal space: Unremarkable. No free air. No significant fluid collection. Vasculature: Unremarkable. No abdominal aortic aneurysm. Lymph nodes: Unremarkable. No enlarged lymph nodes. Urinary bladder: Unremarkable as visualized. Reproductive: Unremarkable as visualized. Bones/joints: Old right acetabular fracture. Soft tissues: Unremarkable. IMPRESSION: No acute pathology
[2021-04-20 18:41] LABS: Microscopic, Urine URINE MICROSCOPIC (MICROSCOPIC)
[2021-04-20 18:43] LABS: Appearance,Urine CLOUDY (Clear); Bilirubin,Urine Negative (Negative); Blood, Urine TRACE-I (Negative); Color,Urine DK YELLOW (Yellow); Glucose,Urine (UA) TRACE (Negative); Ketones,Urine Negative (Negative); Leukocyte Esterase,Urine 1+ (Negative); Nitrate,Urine POSITIVE (Negative); PH,Urine 6.5 (5.0-8.5); Protein,Urine Negative (Negative); Specific Gravity, Urine 1.025 (1.005-1.030); Urobilinogen,Urine 0.2 EU/dl (0.2)
[2021-04-20 18:46] LABS: Lipase 89 U/L (23-300)
--- NOTE | 2021-04-20 18:50 | CT_ITS ---
PROCEDURE INFORMATION: Exam: CT Head Without Contrast Exam date and time: 04/20/2021 6:50 PM Age: 55 years old Clinical indication: Pain; Headache; Additional info: Stabbing pains in back of head TECHNIQUE: Imaging protocol: Computed tomography of the head without contrast. Radiation optimization: All CT scans at this facility use at least one of these dose optimization techniques: automated exposure control; mA and/or kV adjustment per patient size (includes targeted exams where dose is matched to clinical indication); or iterative reconstruction. COMPARISON: HEADWO CT head/brain wo con 12/03/2018 6:08 AM FINDINGS: Brain: Normal. No hemorrhage. Unremarkable white matter. No mass effect. Cerebral ventricles: No ventriculomegaly. Paranasal sinuses: Moderate mucosal thickening in the ethmoids and maxillary sinuses. Mastoid air cells: Visualized mastoid air cells are well aerated. Bones/joints: Unremarkable. No acute fracture. Soft tissues: Unremarkable. Other findings: No reconstructions. IMPRESSION: 1. No acute intracranial pathology. 2. Moderate sinus disease in the ethmoids and maxillary sinuses.
[2021-04-20 18:51] LABS: WBC,Urine 20-50 #/hpf (0-3)
[2021-04-20 18:52] LABS: Bacteria,Urine 4+ /lpf
[2021-04-20 18:54] LABS: Ethyl Alcohol < 10 mg/dl (0-10)
[2021-04-20 20:21] VITALS: BP 127/85; PULSE 78; RESP 18; TEMP 36.8; O2SAT 98
== END 2021-04-20 20:50 | disposition home health service (06) ==
PROVIDERS: Emergency Provider Emergency Medicine; PCP Emergency Medicine
DX: M25.461 Effusion, right knee (principal); M17.11 Unilateral primary osteoarthritis, right knee; N30.00 Acute cystitis without hematuria; F17.210 Nicotine dependence, cigarettes, uncomplicated; J32.9 Chronic sinusitis, unspecified
CPT/HCPCS: 70450; 73562; 74177; 80053; 81001; 83690; 84703; 85025; 87086; 87088; 87186; 93005; 96374; 99283; J2405; Q9967

== ENCOUNTER 2022-10-08 17:29 | Emergency (ER) | payer BC, SELFPAY ==
--- NOTE | 2022-10-08 17:55 | EXP.UTC ---
Discharge Plan Disposition Patient Disposition: Home, Self-Care Condition: Good Prescriptions Prescriptions: New methylprednisolone 4 mg Tablets,Dose Pack 4 mg PO DIRECTED Qty: 21 0RF amoxicillin-pot clavulanate 875-125 mg Tablet 1 tab PO Q12H Qty: 20 0RF No Action clonazepam 0.5 mg tablet 0.5 mg PO HS Qty: 30 0RF Rx Instructions: administer 30 minutes before bedtime bupropion HCl 75 mg tablet 75 mg PO DAILY Qty: 30 0RF oxycodone-acetaminophen [Percocet] 5-325 mg tablet 1 tab PO Q8H PRN (Reason: pain) Qty: 20 0RF cefdinir 300 mg capsule 300 mg PO BID 10 Days Qty: 20 0RF fluticasone propionate [Flonase Allergy Relief] 50 mcg/actuation spray,suspension 1 spray INTRANASAL DAILY Qty: 9.9 2RF Rx Instructions: administer into each nostril Referrals Follow up/Referrals: Silvestre Jane MD [Primary Care Provider] - See instructions Activity Restrictions/Add. Instructions Additional Instructions/Restrictions: Drink plenty of fluids. Take tylenol or ibuprofen for pain or fever. Take the medications as directed. Follow up with your regular doctor. GO TO THE ER FOR ANY WORSENING SYMPTOMS Don't start the oral steroids until tomorrow, since you had the shot here today. Clinical Impressions Clinical Impression: Sinusitis, Otitis media Instructions Patient Instructions: Sinusitis, Middle Ear Infection, DI for Sinusitis Discharge ED Provider: Bin Holm [facility] General Stated complaint: SINUS iNFECTION koo Time Seen by Provider: 10/08/22 17:55 History of Present Illness Provider Complaint: She states that for the past 3 days she has had sore throat, chills, body aches, low grade fever and sinus congestion. Related Data Previous Rx's Medication Instructions Recorded fluticasone propionate 50 1 spray intranasal DAILY #9.9 mL 11/02/19 mcg/actuation nasal spray,suspension (Flonase Allergy Relief) bupropion HCl 75 mg tablet 75 mg PO DAILY #30 tabs 01/06/22 clonazepam 0.5 mg tablet 0.5 mg PO HS #30 tabs 01/06/22 amoxicillin 875 mg-potassium 1 tab PO Q12H #20 tabs 10/08/22 clavulanate 125 mg tablet methylprednisolone 4 mg tablets in 4 mg PO DIRECTED #21 tabs 10/08/22 a dose pack cefdinir 300 mg capsule 300 mg PO BID 10 days #20 caps 10/09/22 oxycodone-acetaminophen 5 mg-325 1 tab PO Q8H PRN pain #20 tabs 10/09/22 mg tablet (Percocet) Allergies Allergy/AdvReac Type Severity Reaction Status Date / Time No Known Allergies Allergy Verified 10/09/22 15:05 [facility] Disclaimer: The information contained in this section may have been updated after the patient was seen, as this information can be updated by other users. Social History Smoking Status: Current every day smoker tobacco type: cigarettes packs per day: 1 second hand exposure: Yes alcohol intake: never substance use type: marijuana current occupational status: employed Travel in the last 8 weeks: None household members: significant other, family and children housing: house caffeine: Yes ROS Obtained: Yes All systems reviewed & no additional complaints except as documented Constitutional Constitutional: Reports poor appetite Eyes Eyes: Reports system reviewed and no additional complaints, except as documented ENT Ears, Nose, Mouth, and Throat: Reports as per HPI Cardiovascular Cardiovascular: Reports system reviewed and no additional complaints, except as documented and Denies chest pain Respiratory Respiratory: Denies shortness of breath, Denies chest congestion, Reports cough, Denies stridor and Denies wheezing Gastrointestinal Gastrointestingal: Reports system reviewed and no additional complaints, except as documented; Denies abdominal pain, diarrhea or vomiting Musculoskeletal Musculoskeletal: Reports system reviewed and no additional complaints, except as documented and Denies arthr
[2022-10-08 18:00] VITALS: BP 149/93; PULSE 93; RESP 20; TEMP 36.8; O2SAT 95; BMI 21.9
--- NOTE | 2022-10-08 18:11 | ECG_ITS ---
APPROVED REPORT Exam: Resting ECG HR:78 bpm ECG Measurements Heart Rate 78 AXES MT 130 P 69 QRSd 95 QRS 53 QT 361 T 45 QTc 394 Conclusion SINUS RHYTHM LEFT ATRIAL ENLARGEMENT [-0.15mV P-WAVE IN V1/V2] INCOMPLETE RIGHT BUNDLE BRANCH BLOCK [90+ ms QRS DURATION, TERMINAL R IN V1/V2, 40+ ms S IN I/aVL/V4/V5/V6] NONSPECIFIC ST & T-WAVE ABNORMALITY ABNORMAL ECG UNCONFIRMED REPORT Electronically signed by : Jaime Ernst MD 10/09/2022 21:52:09
[2022-10-08 18:37] VITALS: BMI 21.9
[2022-10-08 18:40] VITALS: BP 149/93; PULSE 93; RESP 20; TEMP 36.8; O2SAT 95; BMI 21.9
[2022-10-08 19:02] VITALS: BP 149/93; PULSE 93; RESP 20; TEMP 36.8; O2SAT 95
== END 2022-10-08 19:01 | disposition home or self-care (01) ==
LOC: ER 17:46 → UTC 17:49
PROVIDERS: Emergency Provider Nurse Practitioner Family; PCP Emergency Medicine
DX: J32.9 Chronic sinusitis, unspecified (principal); H66.90 Otitis media, unspecified, unspecified ear
CPT/HCPCS: 93005; 96372; 99212; 99213; G0463; J0696

== ENCOUNTER → 2022-10-28 15:38 | Outpatient (CLI) | payer BC, SELFPAY ==
[2022-10-28 16:01] LABS: Basophils # 0.1 K/mm3 (0-0.2); Basophils % 0.8 % (0.1-2.0); Eosinophils # 0.1 K/mm3 (0.0-0.4); Eosinophils % 1.4 % (0.1-12.0); Hematocrit 40.3 % (37.0-47.0); Hemoglobin 13.3 g/dL (12.2-16.2); Lymphocytes # 2.3 K/mm3 (0.7-4.5); Lymphocytes % 29.4 % (10-50); Mean Corpuscular Hemoglobin 29.8 pg (27.0-31.2); Mean Corpuscular Volume 90.1 fl (81-99); Monocytes # 0.4 K/mm3 (0.1-1.0); Monocytes % 5.3 % (1.7-9.3); Neutrophils # 4.8 K/mm3 (1.8-7.8); Platelet Count 295 K/mm3 (142-424); Red Blood Count 4.48 M/mm3 (4.20-5.40); Red Cell Distribution Width 13.8 % (11.5-17.5); White Blood Count 7.7 K/mm3 (4.8-10.8)
[2022-10-28 16:08] LABS: Alanine Aminotransferase 23 U/L (12-78); Albumin Level 3.9 g/dl (3.5-5.0); Albumin/Globulin Ratio 1.2 (1.1-1.8); Alkaline Phosphatase 135 U/L (38-126); Aspartate Amino Transferase 31 U/L (14-36); Bilirubin,Total 0.5 mg/dl (0.2-1.3); Blood Urea Nitrogen 14 mg/dl (7-17); Carbon Dioxide 30 mmol/L (22.0-30.0); Chloride 105 mmol/L (98-107); Chol/HDL Ratio 3.3 (1-3.5); Cholesterol 162 mg/dl (140-200); Estimated Glomerular Filt Rate 128 ml/min (>60); GFR (African American) 155 ML/MIN (>60); Globulin 3.2 g/dL (1.3-3.2); Glucose 114 mg/dl (74-100); HDL Cholesterol 49 mg/dl (40-60); Sodium 137 mmol/L (136-145); Total Protein,Serum 7.1 g/dl (6.3-8.2); Triglycerides 83 mg/dl (30-150); VLDL Cholesterol 17 mg/dL (0-40)
[2022-10-28 16:19] LABS: Direct LDL Cholesterol 82.03 mg/dL (100-129)
[2022-10-28 16:21] LABS: 25-OH Vitamin D, Total 16.3 ng/mL (30-100)
[2022-10-28 16:23] LABS: Free T4 (Free Thyroxine) 1.22 ng/dl (0.78-2.19)
[2022-10-28 16:42] LABS: Thyroid Stimulating Hormone 0.48 uIU/mL (0.465-4.68)
== END ==
PROVIDERS: PCP Emergency Medicine; Visit Provider Emergency Medicine
DX: R53.83 Other fatigue (principal); E55.9 Vitamin D deficiency, unspecified; Z79.899 Other long term (current) drug therapy
CPT/HCPCS: 80053; 80061; 82306; 84439; 84443; 85025

== ENCOUNTER → 2023-02-11 10:28 | Outpatient (CLI) | payer BC, SELFPAY ==
--- NOTE | 2023-02-11 10:35 | MM_ITS ---
PROCEDURE INFORMATION: Exam: MG Bilateral Screening 3D Mammography Exam date and time: 02/11/2023 10:46 AM Age: 57 years old Clinical indication: Screening. No family history of breast cancer. TECHNIQUE: Imaging protocol: Bilateral Screening tomosynthesis and 2D mammography including computer-aided detection (CAD) when performed. COMPARISON: 1. MG MM DIG SCREENING MAMM BI W/CAD 10/20/2019 9:37 AM 2. MG DMSB DIG MAMM-SCREEN LILA 12/20/2014 8:58 AM 3. MG SBWCR STEROTATIC BX W/CLIP-RT 11/17/2012 10:24 AM 4. MG DMDXUR DIG MAMM-DX UNILATERAL-RT 11/17/2012 8:54 AM FINDINGS: MAMMOGRAPHY: Breast composition: The breasts are extremely dense, which lowers the sensitivity of mammography. Mass: No suspicious mass. Architectural distortion: None. Calcifications: No significant change in scattered bilateral benign-appearing calcifications. No suspicious calcifications. Asymmetric density: None. Skin thickening: None. Axillary adenopathy: None. Other: Right biopsy clip. IMPRESSION: No mammographic evidence of malignancy. Annual screening is recommended unless otherwise clinically indicated. ASSESSMENT: BI-RADS Category 2: Benign
--- NOTE | 2023-02-11 10:35 | XR_ITS ---
FINAL REPORT CLINICAL HISTORY: Left knee pain COMPARISON: None FINDINGS: 2 views of the left knee were obtained. There is no acute fracture or dislocation. There is severe tricompartmental degenerative change. Osteopenia is noted. There is no soft tissue abnormality. IMPRESSION: Degenerative change without acute bony abnormality. Reviewed, Interpreted and Dictated by Aime Frank MD Transcribed by Krystin Mg Authenticated and [facility]
--- NOTE | 2023-02-11 10:35 | XR_ITS ---
FINAL REPORT CLINICAL HISTORY: Right knee pain COMPARISON: None FINDINGS: There is no acute fracture or dislocation. There is severe tricompartmental degenerative change. Osteopenia is noted. There are probable calcified joint bodies within a Bakers cyst posteriorly. IMPRESSION: Degenerative change without acute bony abnormality. Reviewed, Interpreted and Dictated by Aime Frank MD Transcribed by Krystin Mg Authenticated and [facility]
--- NOTE | 2023-02-11 10:35 | CT_ITS ---
FINAL REPORT TECHNIQUE: Noncontrast CT exam of the abdomen and pelvis. This study was performed with techniques to keep radiation doses as low as reasonably achievable (ALARA). Individualized dose reduction techniques using automated exposure control or adjustment of mA and/or kV according to the patient''s size were employed. CLINICAL HISTORY: stomach spasms COMPARISON: 04/20/2021 FINDINGS: Abdomen: Lung bases are clear. Liver, spleen, pancreas and adrenal glands have a normal CT appearance in their limited unenhanced state. The gallbladder is negative. The kidneys show no stone disease or obstruction. No obvious renal mass is present. No ureteral stones are present. Moderate fecal impaction in the right and transverse colon. Pelvis: No distal ureteral stones are seen. Bladder is unremarkable. No fluid collection or adenopathy is seen. Appendix is normal. Uterus and ovaries are unremarkable. IMPRESSION: No acute intra-abdominal abnormality. Moderate fecal impaction. Reviewed, Interpreted and Dictated by Aime Frank MD Transcribed by Marlee Neely Authenticated and [facility]
[2023-02-11 12:18] LABS: Chloride 101 mmol/L (98-107)
[2023-02-11 12:19] LABS: Potassium 4.4 mmoL/L (3.5-5.1); Sodium 139 mmol/L (136-145)
[2023-02-11 12:21] LABS: Alanine Aminotransferase 16 U/L (12-78); Aspartate Amino Transferase 24 U/L (14-36); Blood Urea Nitrogen 9 mg/dl (7-17); Estimated Glomerular Filt Rate 103 ml/min (>60); GFR (African American) 125 ML/MIN (>60)
[2023-02-11 12:22] LABS: Albumin Level 4.7 g/dl (3.5-5.0); Albumin/Globulin Ratio 1.6 (1.1-1.8); Alkaline Phosphatase 106 U/L (38-126); Anion Gap 12.4 mEq/L (5-15); Bilirubin,Total 0.5 mg/dl (0.2-1.3); Calcium 9.4 mg/dl (8.4-10.2); Carbon Dioxide 30 mmol/L (22.0-30.0); Glucose 89 mg/dl (74-100); Lipase 171 U/L (23-300); Total Protein,Serum 7.7 g/dl (6.3-8.2)
== END ==
PROVIDERS: PCP Family Medicine; Visit Provider Family Medicine
DX: Z12.31 Encounter for screening mammogram for malignant neoplasm of breast (principal); R10.9 Unspecified abdominal pain; M62.838 Other muscle spasm; M25.561 Pain in right knee; M25.562 Pain in left knee
CPT/HCPCS: 36415; 73560; 74176; 77063; 77067; 80053; 83690

== ENCOUNTER → 2023-07-09 14:08 | Outpatient (CLI) | payer BC, SELFPAY ==
--- NOTE | 2023-07-09 14:11 | US_ITS ---
PROCEDURE: US TRANSVAGINAL CLINICAL INDICATION: pelvic pain COMPARISON: No exams were available for comparison FINDINGS: Transvaginal sonographic images of the pelvis were obtained. UTERUS: 6.2 cm x 4.2 cmx 3.9 cm. Retroverted with a combined endometrial thickness of 10.2mm. LEFT OVARY: 2.1 cmx1.1 cmx1.1cm with a volume of 1.3ml. RIGHT OVARY: 1.8 cmx 0.9 cmx0.9 cm with a volume of 0.7ml. Both ovaries are seen and appear normal. Doppler flow to both ovaries are seen. There is no fluid in the cul-de-sac. IMPRESSION: 1. Retroverted uterus normal in shape and size. The endometrium is 10.2 mm. 2. Both ovaries are seen and appear normal. They appear atrophic. 3. No fluid in the cul-de-sac. 4. Suggest endometrial sampling given the thickening of the endometrium. Dictated by: Poli Barriga MD 07/09/2023 18:21 Poli Barriga MD in OV 07/09/2023 18:21
== END ==
PROVIDERS: PCP Family Medicine; Visit Provider Nurse Practitioner Obstetrics & Gynecology
DX: R10.2 Pelvic and perineal pain (principal)
CPT/HCPCS: 76830

== ENCOUNTER 2023-11-04 08:05 | Day surgery (SDC) | payer BC, SELFPAY ==
[2023-11-03 12:49] VITALS: BMI 19.8
[2023-11-04 08:28] VITALS: BP 148/92; PULSE 61; RESP 18; TEMP 36.7; O2SAT 99
--- NOTE | 2023-11-04 09:03 | EXP.ANES.CKL ---
[facility] Disclaimer: The information contained in this section may have been updated after the patient was seen, as this information can be updated by other users. Medical History Abdominal pain Cholecystitis Headache Hepatitis Surgical History H/O shoulder surgery H/O thumb surgery Family History Other Family history of cancer Family history of diabetes mellitus type II Family history of hypertension Social History Smoking Status: Current every day smoker tobacco type: cigarettes packs per day: 1 second hand exposure: Yes alcohol intake: current substance use type: marijuana current occupational status: unemployed Travel in the last 8 weeks: None household members: significant other, family and children housing: house caffeine: Yes [facility] [place] Anesthesia Checklist Patient Identification Patient Identification: Arm Band and Verbal (Name & ) Structural Data Admitted From: Home Planned Operative Procedure/s: Colonoscopy Consent for Planned Operative Procedure(s) Verified: Yes NPO Status Verified Time NPO: 00:00 Additional verifications Anesthesia Reactions: No Airway Assessment Mallampati Score:: Class II C-Spine Mobility Assessed: Yes TMJ Mobility Assessed: Yes Dentition: Edentulous Neurological Assessment Level of Consciousness: Awake Hx Seizures: No Numbness or tingling in extremities: No Anesthesia Plan Anesthesia Risk discussed: Yes Anesthesia Plan: Verified ASA Class: II Anesthesia Type: MAC
[2023-11-04 09:16] VITALS: O2SAT 99
--- NOTE | 2023-11-04 09:41 | HMH.SCOPE ---
Procedure: Date: 11/04/23 Patient Date of :: 1965 Procedure Performed:: Colonoscopy Indications:: The patient is a 58-year-old who presents for first-time screening colonoscopy. There is no family history of colon cancer. The patient has also had lower abdominal pain. Patient has had a CT scan that showed no obvious cause for patient's abdominal pain. Performing Provider:: Jamey Cat MD Referring Provider:: Vanessa Corea APRN, gastroenterology Sedation:: See RN records Procedure:: After placing the patient in the left lateral decubitus position, the colonoscopy was gently inserted into the rectum and under direct visualization advanced to the cecum which was identified by transillumination in the right lower quadrant, identification of the ileocecal valve, appendiceal orifice, and cecal strap. Color, texture, mucosa, and anatomy of the colon were carefully examined with the scope. Findings:: There was a sessile polyp 4 mm in size in the proximal ascending colon. The polyp was removed by cold snare polypectomy. The polyp was retrieved. There were 2 sessile polyps in the sigmoid colon. The polyps were 3 mm in size. Polyps removed by cold forceps. There was a sessile polyp in the rectum measuring 8-9 mm in size. The polyp was removed by cold snare polypectomy. The polyp was retrieved. The remaining colon appeared normal. The sigmoid colon was somewhat tortuous. There were internal hemorrhoids seen on retroflexion view of the rectum. Recommendations:: Await pathology results Follow-up in GI office as previously scheduled Repeat colonoscopy in 3 years Complications:: None Estimated blood obtained (mL): 0 Colonoscopy Component Colonoscopy Component Was a colonoscopy performed during today's procedure?: Yes Recommended follow up colonoscopy of at least 10 years?: Yes
[2023-11-04 09:42] VITALS: BP 129/72; PULSE 58; RESP 17; O2SAT 100
[2023-11-04 09:52] VITALS: BP 118/82; PULSE 76; RESP 18; O2SAT 98
[2023-11-04 10:02] VITALS: BP 118/82; PULSE 79; RESP 18; O2SAT 99
== END 2023-11-04 10:15 | disposition home or self-care (01) ==
PROVIDERS: PCP Family Medicine; Visit Provider Internal Medicine
PROC: (CPT 45385; principal; 2023-11-04 09:30)
DX: R10.30 Lower abdominal pain, unspecified (principal); K64.8 Other hemorrhoids; D12.2 Benign neoplasm of ascending colon; D12.8 Benign neoplasm of rectum
CPT/HCPCS: 45385; 45380

== ENCOUNTER 2023-12-31 14:45 | Outpatient (CLI) | payer BC, SELFPAY ==
--- NOTE | 2023-12-31 14:45 | US_ITS ---
PROCEDURE: US TRANSVAGINAL CLINICAL INDICATION: pelvic pain COMPARISON: US US TRANSVAGINAL from 07/09/2023 FINDINGS: Transvaginal and transabdominal sonographic images of the pelvis were obtained. UTERUS: 4.2cm x 4cmx 2.8 cm retroverted with a combined endometrial thickness of 4.8mm. LEFT OVARY: 1.9 cmx1.0cmx2.3cm with a volume of 2.4ml. Appears atrophic. RIGHT OVARY: 1.6 cmx 1.2cmx0.7 cm with a volume of 0.7ml. Appears atrophic. The patient said she voided completely but the bladder has an increased residual volume. This residual measures 6.1 cm x 3.6 cm x 6.8 cm. An increased bladder residual volume was seen on her ultrasound in July 2023. Both ovaries are seen and appear atrophic. Doppler flow to both ovaries are seen. There is no fluid in the cul-de-sac. IMPRESSION: 1. Small retroverted uterus. The endometrium is thin measuring 4.8 mm. 2. Both ovaries are seen and appear atrophic. 3. No fluid in the cul-de-sac. 4. There appears to be an increased residual urine postvoid. Would suggest postvoid residual volume in the office. Dictated by: Poli Barriga MD 01/01/2024 10:06 Poli Barriga MD in [place] 01/01/2024 10:06
== END 2023-12-31 23:59 | disposition home or self-care (01) ==
LOC: RAD 14:45
PROVIDERS: PCP Family Medicine; Visit Provider Obstetrics & Gynecology
DX: R10.2 Pelvic and perineal pain (principal)
CPT/HCPCS: 76830

== ENCOUNTER 2024-09-08 07:45 | Outpatient (CLI) | payer MEDICAID, SELFPAY ==
--- NOTE | 2024-09-08 07:46 | MM_ITS ---
PROCEDURE INFORMATION: Exam: MG Bilateral Screening 3D Mammography Exam date and time: 09/08/2024 7:49 AM Age: 58 years old Clinical indication: Screening examination. TECHNIQUE: Imaging protocol: Bilateral Screening tomosynthesis and 2D mammography including computer-aided detection (CAD) when performed. COMPARISON: 1. MG MM DIG SCREENING MAMM BI W/CAD 02/11/2023 10:46 AM 2. MG MM DIG SCREENING MAMM BI W/CAD 10/20/2019 9:37 AM FINDINGS: MAMMOGRAPHY: Breast composition: The breasts are heterogeneously dense, which may obscure small masses. Mass: None. Architectural distortion: None. Calcifications: No suspicious calcifications. Asymmetric density: None. Skin thickening: None. Axillary adenopathy: None. IMPRESSION: No mammographic evidence of malignancy. Annual screening is recommended unless otherwise clinically indicated. ASSESSMENT: BI-RADS Category 1: Negative.
--- NOTE | 2024-09-08 07:46 | US_ITS ---
FINAL REPORT TECHNIQUE: Sonographic images of the abdomen were obtained in all four quadrants. CLINICAL HISTORY: Abd pain -- palp area on rt flank COMPARISON: None FINDINGS: LIVER: Homogeneous. No focal hepatic lesion or intrahepatic biliary dilatation. The portal vein is patent. GALLBLADDER: No gallstones. No pericholecystic fluid collection or gallbladder wall thickening. The common duct measures 3 mm. This is within normal limits for age. PANCREAS: Unremarkable. RIGHT KIDNEY: 12.2 cm. No hydronephrosis, mass or stone. LEFT KIDNEY: 10.7 cm. No hydronephrosis, mass or stone. SPLEEN: 9.3 cm. No focal splenic lesion. AORTA/IVC: No abdominal aortic aneurysm. Visualized IVC within normal limits. OTHER: No ascites. There is an oval hypoechoic abnormality at the area of interest which may represent a lipoma. IMPRESSION: Unremarkable ultrasound of the abdomen. Possible lipoma along the right flank. Reviewed, Interpreted and Dictated by Margaret Frederick MD Transcribed by Beverly Stovall Authenticated and [facility]
== END 2024-09-08 23:59 | disposition home or self-care (01) ==
LOC: RAD 07:46
PROVIDERS: PCP Family Medicine; Visit Provider Family Medicine
DX: Z12.31 Encounter for screening mammogram for malignant neoplasm of breast (principal); M62.838 Other muscle spasm; R10.9 Unspecified abdominal pain
CPT/HCPCS: 76700; 77063; 77067

== ENCOUNTER 2024-11-22 09:47 | Outpatient (CLI) | payer MEDICAID, SELFPAY ==
--- NOTE | 2024-11-22 09:48 | XR_ITS ---
FINAL REPORT CLINICAL HISTORY: Pain in the lower abdom COMPARISON: None FINDINGS: THORACIC SPINE 2 VIEWS: No fracture is seen. Alignment is normal. Mild degenerative disc disease and endplate spurring is identified. IMPRESSION: Mild degenerative change without acute bony abnormality. Reviewed, Interpreted and Dictated by Aime Frank MD Transcribed by Mayuri Rangel Authenticated and [facility]
--- NOTE | 2024-11-22 09:48 | CT_ITS ---
FINAL REPORT TECHNIQUE: IV contrast exam This study was performed with techniques to keep radiation doses as low as reasonably achievable, (ALARA). Individualized dose reduction techniques using automated exposure control or adjustment of mA and/or kV according to the patient's size were employed. CLINICAL HISTORY: Diffuse Abdominal + pelvic pain COMPARISON: 02/11/2023 FINDINGS: CT ABDOMEN PELVIS WITH CONTRAST: Abdomen: Lung bases are clear. The gallbladder is unremarkable. Liver has an unremarkable CT appearance. The spleen, pancreas and adrenal glands are unremarkable. Kidneys show no mass or obstruction. No bowel obstruction or fluid collection is seen. Mild fecal impaction is once again noted, similar to the prior CT. Pelvis: The appendix is normal in appearance. Pelvic bowel loops are unremarkable. No fluid collection or adenopathy is seen. The uterus and ovaries are unremarkable in appearance. IMPRESSION: No acute abnormality in the abdomen or pelvis is noted. Mild changes of fecal impaction, similar to the prior CT of 02/11/2023. Reviewed, Interpreted and Dictated by Aime Frank MD Transcribed by Mayuri Rangel Authenticated and [facility]
[2024-11-22] MEDS: SODIUM CHLORIDE 0.9% 10ML SYR (RAD ONLY) 10 ML IV (10:07)
[2024-11-22] MEDS: IOPAMIDOL-370 (76%);100ML BOTTLE 75 ML IV (10:07)
== END 2024-11-22 23:59 | disposition home or self-care (01) ==
LOC: RAD 09:48
PROVIDERS: PCP Family Medicine; Visit Provider Family Medicine
DX: R10.32 Left lower quadrant pain (principal); R10.84 Generalized abdominal pain
CPT/HCPCS: 72070; 74177; Q9967

== ENCOUNTER 2025-06-05 13:56 | Outpatient (CLI) | payer MEDICAID, SELFPAY ==
[2025-06-05 16:57] LABS: Alanine Aminotransferase 33 U/L (12-78); Albumin Level 4.5 g/dl (3.5-5.0); Albumin/Globulin Ratio 1.6 (1.1-1.8); Alkaline Phosphatase 100 U/L (38-126); Anion Gap 14.4 mEq/L (5-15); Aspartate Amino Transferase 33 U/L (14-36); Bilirubin,Total 0.4 mg/dl (0.2-1.3); Blood Urea Nitrogen 7 mg/dl (7-17); Calcium 9.4 mg/dl (8.4-10.2); Carbon Dioxide 29 mmol/L (22.0-30.0); Chloride 102 mmol/L (98-107); Creatinine,Serum 0.60 mg/dl (0.52-1.04); Estimated Glomerular Filt Rate 103 ml/min (>60); GFR (African American) 124 ML/MIN (>60); Globulin 2.8 g/dL (1.3-3.2); Glucose 100 mg/dl (74-100); Potassium 4.4 mmoL/L (3.5-5.1); Sodium 141 mmol/L (136-145); Total Protein,Serum 7.3 g/dl (6.3-8.2)
== END 2025-06-05 23:59 | disposition home or self-care (01) ==
LOC: LAB 13:56
PROVIDERS: PCP Family Medicine; Visit Provider Family Medicine
DX: N95.1 Menopausal and female climacteric states (principal)
CPT/HCPCS: 36415; 80053

== ENCOUNTER 2025-08-25 09:31 | Day surgery (SDC) | payer MEDICAID, SELFPAY ==
[2025-08-23 15:44] VITALS: BMI 24.2
[2025-08-25 09:59] VITALS: BP 132/89; PULSE 97; RESP 18; TEMP 36.4; O2SAT 97
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
[2025-08-25] MEDS: 0.9 % SODIUM CHLORIDE 500 ML 25 ML IV (10:40)
[2025-08-25 10:45] VITALS: BP 148/83; PULSE 90; RESP 16; TEMP 36.6; O2SAT 98
[2025-08-25 13:39] LABS: Microscopic,Cath URINE MICROSCOPIC (MICROSCOPIC)
[2025-08-25 15:23] LABS: Appearance,Urine/Cath CLEAR (Clear); Bilirubin,Cath Negative (Negative); Blood, Urine/Cath Negative (Negative); Color,Urine/Cath YELLOW (Yellow); Glucose,Urine/Cath (UA) Negative (Negative); Ketones,Urine/Cath Negative (Negative); Leukocyte Esterase,Cath Negative (Negative); Nitrate,Cath Negative (Negative); PH,Urine/Cath 6.5 (5.0-8.5); Protein,Urine/Cath Negative (Negative); Specific Gravity, Urine/Cath <= 1.005 (1.005-1.030); Urobilinogen,Cath 0.2 EU/dl (0.2)
== END 2025-08-25 11:17 | disposition home or self-care (01) ==
PROVIDERS: PCP Family Medicine; Visit Provider Urology
PROC: 0TJB8ZZ Inspection of Bladder, Via Natural or Artificial Opening Endoscopic (ICD-10-PCS; CPT 52000; principal; 2025-08-25 09:45)
DX: N32.81 Overactive bladder (principal); N39.3 Stress incontinence (female) (male); N95.2 Postmenopausal atrophic vaginitis; F17.210 Nicotine dependence, cigarettes, uncomplicated; Z79.899 Other long term (current) drug therapy
CPT/HCPCS: 52000; 81001; J7040